=== PATIENT | female | born 1990 | race Caucasian/White ===

== ENCOUNTER 2022-04-06 09:43 | Emergency (ER) | payer MEDICAID, SELFPAY ==
[2022-04-06 09:44] VITALS: BP 120/65; PULSE 59; RESP 17; TEMP 36.2; O2SAT 98; BMI 36.6
--- NOTE | 2022-04-06 10:18 | EX.ED.DYSGE1 ---
HPI History of Present Illness Chief Complaint: Dizziness Informant: patient Narrative Narrative: 31-year-old female presenting to the emergency room chief complaint of dizziness. Patient states that yesterday she abruptly got a sensation that the room was spinning. She states she cannot find a position of comfort and it was made worse if she would move quickly. If she moves slowly symptoms are not as bad. She states that there is very hard for her to lay flat but when she eventually did lay flat as long as she states still things seem to be okay. She notes some associated nausea and vomiting that began when she was very dizzy. She denies any syncope. No recent illnesses. No tinnitus. 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 PFSH PFSH Home Medications diazepam 5 mg tablet 5 mg PO Q8 PRN vertigo #10 tabs 04/06/22 [Rx Last Taken Unknown] ondansetron HCl 4 mg tablet 4 mg PO Q6H PRN nausea and vomiting #15 tabs 04/06/22 [Rx Last Taken Unknown] Allergy/AdvReac Type Severity Reaction Status Date / Time No Known Allergies Allergy Verified 04/06/22 09:43 Social History (Updated 04/06/22 @ 10:[address] Иван Garrett, DO) current gender identity: female Smoking Status: Never smoker ROS ROS ED Constitutional Constitutional ED: Denies chills, fever(s) or weight loss Eyes Eyes: Denies change in vision or diplopia ENT ENT ED: Denies ear pain, rhinorrhea or sore throat Cardiovascular Cardiovascular: Denies chest pain, orthopnea, palpitations or racing heartbeat Respiratory/Chest Respiratory/Chest: Denies cough, dyspnea or orthopnea Gastrointestinal Gastrointestinal: Denies abdominal pain, diarrhea, nausea or vomiting Genitourinary Genitourinary ED: Denies dysuria, hematuria or urinary frequency Musculoskeletal Musculoskeletal: Denies arthralgias or myalgias Integumentary Denies abscess or rash Neurologic Neurologic: Denies headache(s) or weakness Psychiatric Psychiatric: Denies anxiety, depression, suicidal ideation or suicidal thoughts Endocrine Endocrinology: Denies polydipsia, polyphagia or polyuria Allergic/Immunologic Allergic/Immunologic ED: Denies mouth swelling, tongue swelling or urticaria EXAM Physical Exam Const Vital Signs: 04/06/22 09:44 Temperature 97.1 F L Temperature Source Temporal Pulse Rate 59 L Respiratory Rate 17 Blood Pressure 120/65 Blood Pressure Mean 83 Pulse Ox 98 Oxygen Delivery Method Room Air Positive well nourished and well developed General Appearance ED: well developed HEENT Reports normocephalic, head/scalp atraumatic and moist mucous membranes HEENT Narrative: There is a slight horizontal nystagmus with a fast component to the right. + garcía ellison pike Eyes PERRL and EOMs intact bilaterally Neck no lymphadenopathy, supple and no JVD Resp normal respiratory effort and clear to auscultation bilaterally Cardio regular rate, regular rhythm and no murmurs GI normal to inspection, nondistended, normoactive bowel sounds and non-tender Palpation: soft Back/Spine no CVA tenderness and normal ROM Extremity normal to inspection General Extremety ED: Negative for edema General Extremity: Negative for edema Neuro oriented x3 and CN's II-XII intact bilaterally Sensorium / Orientation: alert Motor Exam: strength 5/5 throughout Psych mental status grossly normal Mood & Affect: Negative for depressed or tearful Skin no rashes or lesions noted and no wounds MDM MDM MDM Narrative Medical decision making narrative: The patient I believe has peripheral vertigo. I can write for some Valium as needed as well as some Zofran as needed. If this becomes a recurrent chronic issue we will have her follow-up with ENT. Patient has no further questions at this time. Discharge Plan Triage Chief Complaint: Dizziness ED Provider: Иван Garrett Dx/Rx/DC Orders Clinical Impression: Vertigo Instructions: ED BPV Vertigo Prescriptions: New ondansetron HCl 4 mg tablet 4 mg PO Q6H PRN (Reason: nausea and vomiting) Qty: 15 0RF diazepam [diazepam] 5 mg tablet 5 mg PO Q8 PRN (Reason: vertigo) Qty: 10 0RF Primary Care Provider: Care Physician,No Primary Referrals: Nacho Banks MD [Med Staff - Active Staff] - As Needed (For ENT if needed) Care Physician,No Primary [Primary Care Provider] - Disposition Disposition: Home, Self Care
[2022-04-06 10:39] VITALS: PULSE 62; RESP 17; O2SAT 99
== END 2022-04-06 10:42 | disposition home or self-care (01) ==
PROVIDERS: Emergency Provider Emergency Medicine; Visit Provider Emergency Medicine
DX: R42 Dizziness and giddiness (principal)
CPT/HCPCS: 99282

== ENCOUNTER 2022-08-30 13:08 | Emergency (ER) | payer MEDICAID, SELFPAY ==
[2022-08-30 13:09] VITALS: BP 117/85; PULSE 107; RESP 18; TEMP 35.9; O2SAT 99; BMI 36.2
--- NOTE | 2022-08-30 13:44 | EX.ED.DYSGE1 ---
HPI History of Present Illness Chief Complaint: General Illness PFSH PFS Medical History no medical history Home Medications NK 08/30/22 [History Last Taken Unknown] Allergy/AdvReac Type Severity Reaction Status Date / Time No Known Allergies Allergy Verified 08/30/22 13:10 Surgical History no surgical history Social History (Updated 04/06/22 @ 10:[address] Иван Garrett, DO) Smoking Status: Never smoker EXAM Physical Exam Const Vital Signs: 08/30/22 13:09 08/30/22 14:09 Temperature 96.6 F L Temperature Source Temporal Pulse Rate 107 H Respiratory Rate 18 Respiratory Effort Normal Non-Labored Respiratory Pattern Normal Blood Pressure 117/85 H Blood Pressure Mean 95 Pulse Ox 99 Oxygen Delivery Method Room Air MDM MDM Lab Data Labs: Laboratory Results - last 24 hr 08/30/22 08/30/22 08/30/22 13:57 13:57 13:57 WBC 10.5 RBC 6.00 H Hgb 17.9 H Hct 50.6 H MCV 84.3 MCH 29.8 MCHC 35.4 RDW Std Deviation 37.6 RDW Coeff of Sol 12.4 Plt Count 179 MPV 10.4 Immature Gran % (Auto) 0.300 Neut % (Auto) 81.4 H Lymph % (Auto) 10.1 L [place] % (Auto) 6.5 Eos % (Auto) 1.4 Baso % (Auto) 0.3 Absolute Neuts (auto) 8.6 H Absolute Lymphs (auto) 1.06 Nucleated RBC % 0 Sodium 139 Potassium 3.8 Chloride 108 H Carbon Dioxide 25.0 Anion Gap 6 BUN 15 Creatinine 0.76 Estim Creat Clear Calc 90.35 Est GFR (MDRD) Af Amer 115 Est GFR (MDRD) Non-Af 95 BUN/Creatinine Ratio 19.6 Glucose 109 H Calcium 8.2 L Total Bilirubin 0.60 AST 26 ALT 40 Alkaline Phosphatase 54 Total Protein 5.6 L Albumin 3.0 L Globulin 2.6 Albumin/Globulin Ratio 1.2 Serum , Qual NEGATIVE Urine Color Urine Clarity Urine pH Ur Specific [place] Urine Protein Urine Glucose (UA) Urine Ketones Urine Occult Blood Urine Nitrite Urine Bilirubin Urine Urobilinogen Ur Leukocyte Esterase Urine RBC Urine WBC Ur Squamous Epith Cells Urine Bacteria Urine Mucus Monoscreen Negative 08/30/22 14:58 WBC RBC Hgb Hct MCV MCH MCHC RDW Std Deviation RDW Coeff of Sol Plt Count MPV Immature Gran % (Auto) Neut % (Auto) Lymph % (Auto) [place] % (Auto) Eos % (Auto) Baso % (Auto) Absolute Neuts (auto) Absolute Lymphs (auto) Nucleated RBC % Sodium Potassium Chloride Carbon Dioxide Anion Gap BUN Creatinine Estim Creat Clear Calc Est GFR (MDRD) Af Amer Est GFR (MDRD) Non-Af BUN/Creatinine Ratio Glucose Calcium Total Bilirubin AST ALT Alkaline Phosphatase Total Protein Albumin Globulin Albumin/Globulin Ratio Serum , Qual Urine Color Yellow Urine Clarity Sl. Cloudy Urine pH 6.0 Ur Specific [place] 1.015 Urine Protein 30 H Urine Glucose (UA) Normal Urine Ketones Negative Urine Occult Blood 250 H Urine Nitrite Negative Urine Bilirubin Negative Urine Urobilinogen 1 H Ur Leukocyte Esterase 25 H Urine RBC 0 SEEN Urine WBC 0-5 SEEN Ur Squamous Epith Cells 0-5 SEEN Urine Bacteria 0 SEEN Urine Mucus 0 SEEN Monoscreen Treatment and Re-Evaluation :: Patient has blood with no red blood cells in her urine. Patient has protein noted in the urine as well. Patient appears to be hemoconcentrated. [place] was negative. negative. No signs urinary tract infection. Patient was given 2 L of IV fluid. Patient's headache has improved. Patient will follow-up with SENIOR BUSINESS DEVELOPMENT MANAGER with her scheduled appointment on for her dysfunctional uterine bleeding. Patient will continues [id number] medication as needed for headache. No questions at discharge Discharge Plan Triage Chief Complaint: General Illness ED Provider: Mike Quiroz Dx/Rx/DC Orders Clinical Impression: Acute dehydration, Headache, Rhabdomyolysis Instructions: ED Dysfunctional Uterine Bleeding Prescriptions: No Action NK Primary Care Provider: Care Physician,No Primary Referrals: Care Physician,No Primary [Primary Care Provider] - Activity Restrictions/Additional Instructions: Keep your SENIOR BUSINESS DEVELOPMENT MANAGER appointment on . Continue increased fluids. Use [id number] Motrin as needed for headache. Increase fluids for the next 2 or 3 days, water, Gatorade or Powerade. Follow-up PCP if any other acute concerns. Your mono was negative. Disposition Disposition: Home, Self Care
[2022-08-30] MEDS: 0.9% Normal Saline 1,000 ML 1000 ML IV (13:55)
[2022-08-30] MEDS: Ondansetron 4 MG/2 ML Vial IV (13:55)
[2022-08-30] MEDS: Ketorolac 15 MG/ML Vial IV (13:56)
[2022-08-30 14:03] LABS: Absolute Lymphocyte Count 1.06 X10^3/uL (0.83-4.51); Absolute Neutrophil Count 8.6 X10^3/uL (2.0-7.7); Basophil# 0.03 X10^3/uL; Basophil% 0.3 % (0-1); Eosinophil# 0.15 X10^3/uL; Eosinophils% 1.4 % (0-5); Hematocrit 50.6 % (37-47); Hemoglobin 17.9 g/dL (12.0-15.0); Lymphocyte # 1.06 X10^3/ul (0.83-4.51); Lymphocyte % 10.1 % (19-41); Mean Corp Hgb Conc 35.4 g/dL (32-36); Mean Corpuscular Hgb 29.8 pg (27.0-32.0); Mean Corpuscular Volume 84.3 fL (81-99); Mean Platelet Vol. 10.4 fl (6.2-12.0); Monocyte# 0.68 X10^3/uL; Monocyte% 6.5 % (0-10); NRBC Flagged by Analyzer 0 % (0-5); Neutrophil # 8.58 X10^3/uL (2.7-7.7); Neutrophil % 81.4 % (47-70); Platelet Count 179 K/mm3 (150-450); RBC Distribution Width CV 12.4 % (11.6-14.6); RBC Distribution Width SD 37.6 fl (35.1-43.9); White Blood Count 10.5 K/mm3 (4.4-11.0)
[2022-08-30 14:11] LABS: Internal QC Validated? YES +Cl - CLEAR BKGD; Pregnancy, Serum, hCG Quali. NEGATIVE Negative
[2022-08-30 14:21] LABS: ALB/GLOB Ratio 1.2 RATIO (0.9-2.4); AST(SGOT) 26 U/L (15-37); Alanine Aminotransfer ALT/SGPT 40 U/L (13-56); Alkaline Phosphatase 54 U/L (45-117); Anion Gap 6 (5-15); BUN 15 mg/dL (7-18); BUN/Creat Ratio 19.6 RATIO (10-20); Calcium,Total 8.2 mg/dL (8.5-10.1); Chloride 108 mmol/L (98-107); Creatinine, Serum 0.76 mg/dL (0.55-1.02); EST Glomerular Filtration Rate 95 mL/min (>60); Est Glom Filt Rate - Afr Amer 115 mL/min (>60); Estimated Creatinine Clearance 90.35 ml/min; Globulin 2.6 g/dL (2.2-4.2); Glucose 109 mg/dL (74-106); Potassium 3.8 mmol/L (3.5-5.1); Protein, Total 5.6 g/dL (6.4-8.2); Sodium Level 139 mmol/L (136-145)
[2022-08-30 14:26] LABS: Internal QC Validated? YES +Cl - CLEAR BKGD; Monotest Negative (Negative)
[2022-08-30 15:02] LABS: Bacteria 0 SEEN /hpf (None Seen); Color, Urine Yellow (Yellow); Glucose, Dipstick Normal (Normal); Ketone-Dipstick Negative (Negative); Leukocyte Esterase-Dipstick 25 /ul (Negative); Mucous, Urine 0 SEEN /hpf (<or=2+); Nitrite-Dipstick Negative (Negative); Occult Blood-Urine 250 /ul (Negative); Protein-Dipstick 30 mg/dl (Negative); Red Blood Cells-Urine 0 SEEN /hpf (0-5); Specific Gravity, Urine 1.015 (1.002-1.030); Urine Bilirubin Dipstick Negative (Negative); Urine Clarity Sl. Cloudy (Clear); Urine Urobilinogen 1 mg/dl (Normal)
[2022-08-30 15:08] LABS: Squamous Epithelial Cells - UA 0-5 SEEN /hpf (5-10); White Blood Cells 0-5 SEEN /hpf (0-5)
[2022-08-30] MEDS: 0.9% Normal Saline 1,000 ML 999 ML IV (16:00)
== END 2022-08-30 16:58 | disposition home or self-care (01) ==
PROVIDERS: Emergency Provider Emergency Medicine; Visit Provider Emergency Medicine
DX: E86.0 Dehydration (principal); R51.9 Headache, unspecified; M62.82 Rhabdomyolysis
CPT/HCPCS: 80053; 81001; 84703; 85025; 86308; 96361; 96374; 96375; 99282; J7030; A4216; J2405

== ENCOUNTER 2023-03-08 18:49 | Emergency (ER) | payer MEDICAID, SELFPAY ==
[2023-03-08 18:50] VITALS: BP 124/74; PULSE 71; RESP 18; TEMP 36.6; O2SAT 98; BMI 40.0
--- NOTE | 2023-03-08 20:57 | ED.RN ---
Called for pt at 2053, no answer.
== END 2023-03-08 20:54 | disposition left against medical advice (07) ==
LOC: ED 20:56
DX: M54.9 Dorsalgia, unspecified (principal)

== ENCOUNTER 2023-11-01 16:31 | Emergency (ER) | payer MEDICAID, SELFPAY ==
[2023-11-01 16:32] VITALS: BP 120/81; PULSE 73; RESP 18; TEMP 35.9; O2SAT 98; BMI 39.4
--- NOTE | 2023-11-01 16:39 | EDS_ITS ---
HPI History of Present Illness Chief Complaint: Dizziness Informant: patient Onset/Context/Timing Onset: Days (3-4) Context: Gradual Onset Timing: Waxes and wanes Quality: Spinning Location: Head Worsened by: Movement Relieved by: Rest Narrative Narrative: Patient presents with dizziness that has been waxing and waning over the last 3 to 4 days. Patient states that he has come on gradually. Patient describes it as a spinning sensation. Patient states it feels like her head is constantly spinning. Patient states it is worse with movement. Patient states that it gets better with rest. Patient states she has been having some nausea and vomiting because of the dizziness. Patient denies any ear pain, tinnitus, or hearing changes. Patient denies any headaches. PFSH PFS Home Medications ?Medication ?Instructions ?Recorded ?Last Taken ?Type diazepam 2 mg tablet 2 mg PO TID PRN PRN Vertigo #10 11/01/23 Unknown Rx TABLETS metformin 500 mg tablet 500 mg PO BID 11/01/23 Unknown History Allergy/AdvReac Type Severity Reaction Status Date / Time No Known Allergies Allergy Verified 11/01/23 16:32 Social History (Updated 04/06/22 @ 10:[address] Иван Garrett, DO) Smoking Status: Never smoker ROS ROS ED Constitutional Constitutional ED: Denies chills or fever(s) Eyes Eyes: Denies blurry vision or change in vision ENT ENT ED: Denies ear pain, rhinorrhea or sore throat Cardiovascular Cardiovascular: Denies chest pain or palpitations Respiratory/Chest Respiratory/Chest: Denies cough or dyspnea Gastrointestinal Gastrointestinal: Reports nausea and vomiting Genitourinary Genitourinary ED: Denies dysuria or hematuria Musculoskeletal Musculoskeletal: Denies back pain or neck pain Integumentary Denies abscess or rash Neurologic Neurologic: Denies headache(s) or weakness Allergic/Immunologic Allergic/Immunologic ED: Denies mouth swelling or urticaria EXAM Physical Exam Const Vital Signs: 11/01/23 16:32 Temperature 96.6 F L Temperature Source Temporal Pulse Rate 73 Respiratory Rate 18 Blood Pressure 120/81 H Blood Pressure Mean 94 Pulse Ox 98 Positive well nourished and well developed General Appearance ED: well developed and NAD HEENT Reports moist mucous membranes Eyes PERRL and EOMs intact bilaterally Eyes Narrative: There is nystagmus with right lateral gaze. This did reproduce patient's dizziness. Neck supple and no JVD Chest Wall inspection of chest normal and palpation of chest normal Resp normal respiratory effort and clear to auscultation bilaterally Cardio regular rate and regular rhythm GI non-tender and non-distended Palpation: soft Extremity normal to inspection General Extremety ED: Negative for edema or tenderness General Extremity: Negative for edema Neuro oriented x3, CN's II-XII intact bilaterally and no sensory deficits noted Sensorium / Orientation: alert Motor Exam: strength 5/5 throughout Psych mental status grossly normal MDM MDM MDM Narrative Medical decision making narrative: Differential diagnosis includes vertigo, labyrinthitis, electrolyte abnormality, dehydration, intracranial bleeding, intracranial mass. CT scan of the brain will be obtained to assess for intracranial bleeding and intracranial mass. CBC will be obtained to assess for leukocytosis and anemia. Basic metabolic profile will be obtained to assess for electrolyte abnormality and renal function. Lab Data Attestation: I reviewed the patient's lab results. Lab results narrative: CBC was reviewed and was within normal limits. Basic metabolic profile was reviewed and was within normal limits. Labs: Laboratory Results - last 24 hr 11/01/23 16:39 WBC 9.0 RBC 5.32 Hgb 15.0 Hct 43.9 MCV 82.5 MCH 28.2 MCHC 34.2 RDW Std Deviation 38.0 RDW Coeff of Sol 12.7 Plt Count 223 MPV 10.9 Immature Gran % (Auto) 0.600 Neut % (Auto) 67.0 Lymph % (Auto) 19.7 [place] % (Auto) 7.9 Eos % (Auto) 4.1 Baso % (Auto) 0.7 Absolute Neuts (auto) 6.0 Absolute Lymphs (auto) 1.77 Nucleated RBC % 0 Sodium 140 Potassium 4.0 Chloride 107 Carbon Dioxide 28.0 Anion Gap 5 BUN 12 Creatinine 0.82 Estim Creat Clear Calc 109.50 Est GFR (MDRD) Af Amer 105 Est GFR (MDRD) Non-Af 87 BUN/Creatinine Ratio 14.7 Glucose 94 Calcium 9.2 Radiography Diagnostic Testing: Clinical Impression(s) from Imaging Studies Brain CT 11/01/23 16:59 IMPRESSION: Normal unenhanced CT scan of the brain. Electronically Signed: Mike Chavez MD at 17:37 EDT , CT scan of the brain was obtained. There is no acute intracranial abnormality. This was interpreted by the radiologist and was also independently reviewed by myself. Treatment and Re-Evaluation :: Patient was given IV fluids. Patient was given a dose of Valium here. Patient was feeling better on reevaluation. Patient was advised of her findings. Patient was advised that this is most likely peripheral vertigo. Patient was given a prescription for Valium. Patient was instructed to drink plenty of fluids. Patient was instructed to follow-up with her primary care physician in 5 to 7 days. Patient understood and was agreeable with the plan. All questions were answered. Discharge Plan Triage Chief Complaint: Dizziness ED Provider: Delmar Short Dx/Rx/DC Orders Clinical Impression: Vertigo, Body mass index (BMI) of 30.0 to 39.9 Instructions: ED Vertigo, Unspecified Prescriptions: New diazepam 2 mg tablet 2 mg PO TID PRN PRN (Reason: Vertigo) Qty: 10 0RF No Action metformin 500 mg tablet 500 mg PO BID Primary Care Provider: Care Physician,No Primary Referrals: Floresita Silva MD [Med Staff - Outpatient Therapist] - 5-7 Days Care Physician,No Primary [Primary Care Provider] - Print Language: [place] Disposition Disposition: Home, Self Care
--- NOTE | 2023-11-01 16:59 | CT_ITS ---
STUDY: CT BRAIN WITHOUT CONTRAST REASON FOR EXAM: Female, 32 years old. Dizziness RADIATION DOSAGE (If Supplied By Facility): CTDIvol = ( 44.99 ) mGy, DLP = ( 762.36 ) mGycm TECHNIQUE: Transaxial CT imaging of the brain was performed without administration of intravenous contrast material. Individualized dose optimization techniques were used for this CT. COMPARISON: No relevant priors. FINDINGS: Normal soft tissue structures. Normal calvarium. Normal size ventricles and extra-axial spaces for the patient''s age. Normal white matter tracts of the cerebral hemispheres. Normal basal ganglia and thalami. Normal brainstem. Normal cerebellum. There is no intracranial hemorrhage. There are no findings of an acute ischemic infarction. Normal visualized paranasal sinuses. CT/Brain/Head without Contrast IMPRESSION: Normal unenhanced CT scan of the brain. Electronically Signed: Mike Chavez MD at 17:37 EDT ,
[2023-11-01] MEDS: 0.9% Normal Saline (1000mL) 1,000 ML 1000 ML IV (17:06)
[2023-11-01] MEDS: diazePAM 5 MG Tablet 2.5 MG PO (17:06)
[2023-11-01 17:13] LABS: Absolute Lymphocyte Count 1.77 X10^3/uL (0.83-4.51); Basophil# 0.06 X10^3/uL; Basophil% 0.7 % (0-1); Eosinophil# 0.37 X10^3/uL; Eosinophils% 4.1 % (0-5); Hematocrit 43.9 % (37-47); Lymphocyte # 1.77 X10^3/ul (0.83-4.51); Lymphocyte % 19.7 % (19-41); Mean Corp Hgb Conc 34.2 g/dL (32-36); Mean Corpuscular Hgb 28.2 pg (27.0-32.0); Mean Corpuscular Volume 82.5 fL (81-99); Mean Platelet Vol. 10.9 fl (6.2-12.0); Monocyte# 0.71 X10^3/uL; Monocyte% 7.9 % (0-10); NRBC Flagged by Analyzer 0 % (0-5); Neutrophil # 6.03 X10^3/uL (2.7-7.7); Platelet Count 223 K/mm3 (150-450); RBC Distribution Width CV 12.7 % (11.6-14.6); Red Blood Count 5.32 M/mm3 (4.2-5.4)
[2023-11-01 17:27] LABS: Anion Gap 5 (5-15); BUN 12 mg/dL (7-18); BUN/Creat Ratio 14.7 RATIO (10-20); Calcium,Total 9.2 mg/dL (8.5-10.1); Chloride 107 mmol/L (98-107); Creatinine, Serum 0.82 mg/dL (0.55-1.02); EST Glomerular Filtration Rate 87 mL/min (>60); Est Glom Filt Rate - Afr Amer 105 mL/min (>60); Glucose 94 mg/dL (74-106); Sodium Level 140 mmol/L (136-145)
[2023-11-01 18:27] VITALS: BP 106/57; PULSE 89; RESP 16; TEMP 36.8; O2SAT 100
== END 2023-11-01 18:28 | disposition home or self-care (01) ==
PROVIDERS: Emergency Provider Emergency Medicine; Visit Provider Emergency Medicine
DX: R42 Dizziness and giddiness (principal); Z79.84 Long term (current) use of oral hypoglycemic drugs
CPT/HCPCS: 70450; 80048; 85025; 96360; 99283; J7030; A4216